=== PATIENT | male | born 2000 | race Caucasian/White ===

== ENCOUNTER 2019-01-07 02:41 | Emergency (ER) | payer BC ==
[2019-01-07] MEDS ORDERED: Lidocaine 2% Viscous Solution 15 ML Cup PO ONE (02:56)
[2019-01-07] MEDS ORDERED: Benzocaine 20% Topical Spray UD MUCMEM ONE (02:56)
--- NOTE | 2019-01-07 03:04 | EDM.PDOC ---
ED HPI GENERAL MEDICAL PROBLEM - General Chief Complaint: ENT Problem Stated Complaint: TOOTH PAIN, SWELLING ON LEFT SIDE OF FACE Time Seen by Provider: 01/07/19 02:51 - History of Present Illness INITIAL COMMENTS - FREE TEXT/NARRATIVE: HISTORY AND PHYSICAL: History of present illness: The patient is a 18-year-old male with a known history of dental problems and issues with a tooth in the premolar area on the left lower side but who has not been able to see a dentist for the last one year and now presents with renewed pain. He has tried topical anesthetics as well as Motrin 600 mg and it is not helped so he is here at 3 AM for evaluation and care. He has no systemic complaints of fevers or chills nausea and vomiting Review of systems: As per history of present illness and below otherwise all systems reviewed and negative. Past medical history: As per history of present illness and as reviewed below otherwise noncontributory. Surgical history: As per history of present illness and as reviewed below otherwise noncontributory. Social history: No reported history of drug or alcohol abuse. Family history: As per history of present illness and as reviewed below otherwise noncontributory. Physical exam: General: Well-developed well-nourished man who is nontoxic and vital signs are noted by me. There is no obvious facial swelling on the left HEENT: Atraumatic, normocephalic, pupils reactive, negative for conjunctival pallor or scleral icterus, mucous membranes moist, throat clear, neck supple, nontender, trachea midline. There is no obvious facial swelling and on inspection of the teeth there are multiple areas of gingival changes and dental disease the most noteworthy is at tooth #19 where there is a cavity with some tooth loss on the lingular side and there is swelling of the gum along tooth #18 , #19, #20 without fluctuance. There is no cervical adenopathy or nuchal rigidity Lungs: Clear to auscultation, breath sounds equal bilaterally, chest nontender. Heart: S1S2, regular rate and rhythm no overt murmurs Abdomen: Soft, nondistended, nontender. NABS Pelvis: Deferred Genitourinary: Deferred. Rectal: Deferred. Extremities: Atraumatic, negative for cords or calf pain. Neurovascular unremarkable. Neuro: Awake, alert, oriented. Cranial nerves II through XII unremarkable. Cerebellum unremarkable. Motor and sensory unremarkable throughout. Exam nonfocal. Diagnostics: [] Therapeutics: Dental balls Impression: Dental pain/dental caries with infection Definitive disposition and diagnosis as appropriate pending reevaluation and review of above. tooth Pain Score (Numeric/FACES): 7 - Related Data Allergies Allergy/AdvReac Type Severity Reaction Status Date / Time No Known Allergies Allergy Verified 01/07/19 02:57 Home Meds: Home Meds . [No Known Home Meds] 01/07/19 [History] ED ROS GENERAL - Review of Systems Review Of Systems: ROS reveals no pertinent complaints other than HPI. ED EXAM, GENERAL - Physical Exam Exam: See Below (see dictation) Course - Vital Signs Last Recorded V/S: Last Vital Signs Temp 36.6 C 01/07/19 02:50 Pulse 80 01/07/19 02:50 Resp 18 01/07/19 02:50 BP 145/89 H 01/07/19 02:50 Pulse Ox 94 L 01/07/19 02:50 - Orders/Labs/Meds Meds: Medications Discontinued Medications Generic Name Dose Route Start Last Admin Trade Name Ansonq PRN Reason Stop Dose Admin Benzocaine 2 each 01/07/19 02:56 Hurricaine One 20% MUCMEM 01/07/19 02:57 ONETIME ONE Lidocaine HCl 15 ml 01/07/19 02:56 Xylocaine 2% Viscous PO 01/07/19 02:57 ONETIME ONE Departure - Departure Time of Disposition: 03:02 Disposition: Home, Self-Care 01 Condition: Good Clinical Impression: Infected dental caries - Discharge Information Referrals: PCP,None [Primary Care Provider] - Forms: ED Department Discharge Additional Instructions: The following information is given to patients seen in the emergency department who are being discharged to home. This information is to outline your options for follow-up care. We provide all patients seen in our emergency department with a follow-up referral. The need for follow-up, as well as the timing and circumstances, are variable depending upon the specifics of your emergency department visit. If you don't have a primary care physician on staff, we will provide you with a referral. We always advise you to contact your personal physician following an emergency department visit to inform them of the circumstance of the visit and for follow-up with them and/or the need for any referrals to a consulting specialist. The emergency department will also refer you to a specialist when appropriate. This referral assures that you have the opportunity for followup care with a specialist. All of these measure are taken in an effort to provide you with optimal care, which includes your followup. Under all circumstances we always encourage you to contact your private physician who remains a resource for coordinating your care. When calling for followup care, please make the office aware that this follow-up is from your recent emergency room visit. If for any reason you are refused follow-up, please contact the [facility] emergency department at and ask to speak to the emergency department charge nurse. [facility] Primary care- Internal Medicine and Family [address] [address] Please connect with a local dentist for further evaluation and definitive care of this problem and use ice to your face for any swelling. Continue to use the [id number] Motrin/ibuprofen as you have been doing and add over the counter Tylenol as we discussed. Take the antibiotics, amoxicillin, you have been given from [facility] for the infection. The swelling and pain will slowly improve but this needs to be addressed and corrected permanently and that can only occur with the dentist. You may also call and follow-up with one of our providers in the clinic. Return to ER as needed as discussed
== END 2019-01-07 03:29 | disposition home or self-care (01) ==
LOC: MW.ED 02:41
DX: K04.7 Periapical abscess without sinus (principal)
CPT/HCPCS: 99282; A9270